=== PATIENT | male | born 1980 | race Caucasian/White ===

== ENCOUNTER 2016-11-22 08:25 | Emergency (ER) | payer OTHER ==
[2016-11-22] MEDS ORDERED: Aspirin Low Dose CHEW TAB* 81 MG PO ONE (08:32)
[2016-11-22] MEDS ORDERED: NS 0.9% 1000 ML* 1,000 ML IV ONE (08:32)
[2016-11-22] MEDS ORDERED: Labetalol IV* 5 MG/ML 20 ML VIAL IV PUSH ONE (08:45)
[2016-11-22] MEDS ORDERED: Labetalol IV* 5 MG/ML 20 ML VIAL ONE (08:47)
[2016-11-22 08:52] LABS: Hematocrit 44 % (42-52); Hemoglobin 15.2 g/dl (14.0-18.0); Mean Corpuscular HGB Conc 34 g/dl (31-36); Mean Corpuscular Hemoglobin 31 pg (27-31); Mean Corpuscular Volume 91 fL (80-94); Mean Platelet Volume 8 um3 (7.4-10.4); Red Blood Count 4.84 10^6/ul (4.0-5.4); Red Cell Distribution Width 13 % (10.5-15)
[2016-11-22 09:08] LABS: Albumin 3.6 g/dL (3.2-5.2); BUN/Creatinine Ratio 16.3 (8-20); Calcium 8.8 mg/dL (8.6-10.3); EGFR African American 141.5 (>60); Globulin 3.5 g/dL (2-4); Potassium 4.4 mmol/L (3.5-5.0); Total Bilirubin 0.3 mg/dL (0.2-1.0); Total Protein 7.1 g/dL (6.4-8.9)
[2016-11-22 09:09] LABS: Troponin I 0.01 ng/mL (<0.04)
[2016-11-22] MEDS ORDERED: Iodixanol* (CONTRAST) 320 MG/ML 100 ML SDV IV ONE (09:09)
--- NOTE | 2016-11-22 09:39 | RAD ---
HISTORY: Acute chest pain and shortness of breath COMPARISONS: None TECHNIQUE: Multiple contiguous axial CT scans were obtained of the chest, abdomen, and pelvis after the administration of intravenous contrast. Coronal and sagittal multiplanar reformations are submitted for review.. Oral contrast was not administered. 3-D volumetric reconstructions of the aorta are also submitted for review FINDINGS: CHEST NECK AND THYROID: The lower neck and thyroid are unremarkable. CHEST WALL: There is no lower cervical, axillary, or supraclavicular lymphadenopathy by size criteria. HEART AND PERICARDIUM: The heart is unremarkable. AORTA AND PULMONARY VASCULATURE: There is no pulmonary arterial filling defect to suggest pulmonary was. There is no aneurysmal dilatation of the aorta or intimal flap to suggest dissection. There is mild ectasia of ascending thoracic aorta up to 3.7 cm. MEDIASTINUM: There are prevascular and paratracheal and subcarinal lymph nodes, the largest measuring up to 1.2 cm in short axis. TAMIKA: There is a 1.2 cm short axis right hilar lymph node. AIRWAY AND ESOPHAGUS: The airway is unremarkable, without endobronchial filling defect. The esophagus is grossly normal. LUNG PARENCHYMA: The lungs are clear. PLEURA: No pleural abnormalities are noted. BONES AND SOFT TISSUES: No bone or soft tissue abnormalities are noted. ABDOMEN/PELVIS: LIVER: The liver is normal in shape, size, contour, and attenuation. BILE DUCTS: There is no intrahepatic or extrahepatic biliary dilatation. GALLBLADDER: The gallbladder is normal, without pericholecystic inflammatory change. PANCREAS: The pancreas is normal, without mass or ductal dilatation. SPLEEN: Normal in size and appearance. UPPER GI TRACT: Evaluation of the gastrointestinal tract is limited by incomplete gastric distention. The upper GI tract is unremarkable. SMALL BOWEL \T\ MESENTERY: The small bowel is normal in contour, course, and caliber. There is no obstruction or dilatation. COLON: The colon is normal in contour, course, caliber. There is no pericolonic inflammatory change. There is a tubular, vermiform, hollow viscus that is blind ending, and originates from the cecum, consistent with a normal appendix. There is no periappendiceal inflammatory change. This is best seen on axial images 94 through 101. ADRENALS: Normal bilaterally. KIDNEYS: The kidneys are normal in shape, size, contour, and axis. There is no hydronephrosis or nephrolithiasis. BLADDER: The bladder is smooth in contour. PELVIC ORGANS: The prostate gland is normal. The seminal vesicles are symmetric. AORTA: The aorta is normal. IVC: Unremarkable LYMPH NODES: There is no lymphadenopathy by size criteria. ABDOMINAL WALL: There is a small fat-containing umbilical hernia BONES: Mild degenerative changes are noted OTHER: None IMPRESSION: 1. NO AORTIC ANEURYSM OR DISSECTION. 2. NO PULMONARY ARTERIAL FILLING DEFECT TO SUGGEST PULMONARY ANEURYSM. 3. HILAR AND MEDIASTINAL LYMPHADENOPATHY
[2016-11-22 09:46] LABS: T4 7.83 mcg/mL (6.09-12.23)
[2016-11-22 09:47] LABS: TSH (Thyroid Stimulating Horm) 1.58 mcIU/mL (0.34-5.60)
[2016-11-22 10:27] LABS: Urine Bilirubin Negative (Negative); Urine Glucose Negative (Negative); Urine Nitrite Negative (Negative)
[2016-11-22 13:29] VITALS: BP 149/84
[2016-11-22 13:46] LABS: Benzodiazepine Urine Screen None Detected (None Detect)
--- NOTE | 2016-11-22 18:08 | ED ---
Nerissa Singer Rebecca, scribed for Tim Ferrell MD on 11/22/16 at 0844 . HPI Chest Pain - HPI Summary HPI Summary: Pt is a 36 y/o M who presents to ED c/o CP. Pain began suddenly at 0550 this morning, waking him up from sleep, and has been constant since onset. Pain is characterized as pressure and is currently moderate, ranked 4/10. Sx aggravated and alleviated by nothing. Additionally c/o sudden onset SOB since 0550. 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 Shx current smoker. - History of Current Complaint Chief Complaint: EDChestPainROMI Time Seen by Provider: 11/22/16 08:31 Hx Obtained From: Patient Onset/Duration: Still Present Time of Onset: 05:50 Timing: Constant Current Severity: Moderate Pain Intensity: 4 Pain Scale Used: 0-10 Numeric Character: Pressure/Squeezing Aggravating Factor(s): Nothing Alleviating Factor(s): Nothing Associated Signs and Symptoms: Positive: Shortness of Breath - Allergy/Home Medications Allergies/Adverse Reactions: Allergies Allergy/AdvReac Type Severity Reaction Status Date / Time No Known Allergies Allergy Verified 11/22/16 08:53 Home Medications: Home Medications Carvedilol TAB* [Coreg TAB*] 6.25 mg PO DAILY 11/22/16 [History Confirmed ] HYDROcodone/ACETAMIN 5-325 MG* [[place] 5-325 TAB*] 1 tab PO Q6H PRN MDD 4 tabs [History Confirmed 11/22/16] Nicotine Lozenge* 1 mg PO Q2H PRN 11/22/16 [History Confirmed 11/22/16] Pantoprazole TAB (NF) [Protonix TAB (NF)] 40 mg PO QAM 11/22/16 [History Confirmed 11/22/16] PMH/Surg Hx/FS Hx/Imm Hx Endocrine/Hematology History: Denies: Hx Anticoagulant Therapy, Hx Diabetes, Hx Thyroid Disease Cardiovascular History: Reports: Other Cardiovascular Problems/Disorders - Enlarged aortic arch Denies: Hx Hypertension, Hx Pacemaker/ICD Respiratory History: Denies: Hx Asthma, Hx Chronic Obstructive Pulmonary Disease (COPD) GI History: Reports: Hx Gastroesophageal Reflux Disease History: Denies: Hx Renal Disease Neurological History: Denies: Hx Dementia, Hx Seizures Psychiatric History: Denies: Hx Substance Abuse - Surgical History Surgery Procedure, Year, and Place: rt knee surgery, maniscus trimmed 2008 Infectious Disease History: Denies: Hx Hepatitis, Hx Human Immunodeficiency Virus (HIV), Traveled Outside the [place] in Last 30 Days - Family History Known Family History: Positive: Diabetes, Other - HLD - Social History Alcohol Use: Weekly Substance Use Type: Reports: None Smoking Status (MU): Heavy Every Day Tobacco Smoker Review of Systems Positive: Chest Pain Positive: Shortness Of Breath All Other Systems Reviewed And Are Negative: Yes Physical Exam - Summary Physical Exam Summary: VITAL SIGNS: Reviewed. GENERAL: ~Patient is a well-developed male who is lying comfortable in the stretcher. ~Patient is not in any acute respiratory distress. He is pale and ill -appearing. HEAD AND FACE: No signs of trauma. ~No ecchymosis, hematomas or skull depressions. No sinus tenderness. EYES: PERRLA, EOMI x 2, No injected conjunctiva, no nystagmus. EARS: Hearing grossly intact. Ear canals and tympanic membranes are within normal limits. MOUTH: Oropharynx within normal limits. NECK: Supple, trachea is midline, no adenopathy, no JVD, no carotid bruit, no c- spine tenderness, neck with full ROM. CHEST: Symmetric, no tenderness at palpation LUNGS: Clear to auscultation bilaterally. No wheezing or crackles. CVS: Regular rate and rhythm, S1 and S2 present, no gallops appreciated. Systolic ejection murmur. ABDOMEN: Soft, non-tender. No signs of distention. No rebound no guarding, and no masses palpated. Bowel sounds are normal. EXTREMITIES: FROM in all major joints, no edema, no cyanosis or clubbing. NEURO: Alert and oriented x 3. No acute neurological deficits. Speech is normal and follows commands. SKIN: Dry and warm, pale Triage Information Reviewed: Yes Vital Signs On Initial Exam: Initial Vitals Temp Pulse Resp BP Pulse Ox 96.7 F 66 20 156/99 98 11/22/16 08:26 11/22/16 08:26 11/22/16 08:26 11/22/16 08:26 11/22/16 08:26 Vital Signs Reviewed: Yes Diagnostics - Vital Signs Vital Signs Temp Pulse Resp BP Pulse Ox 11/22/16 08:26 96.7 F 66 20 156/99 98 - Laboratory Lab Results: Lab Results 11/22/16 11/22/16 11/22/16 Range/Units 08:32 08:32 08:32 WBC (3.5-10.8) 10^3/ul RBC (4.0-5.4) 10^6/ul Hgb (14.0-18.0) g/dl Hct (42-52) % MCV (80-94) fL MCH (27-31) pg MCHC (31-36) g/dl RDW (10.5-15) % Plt Count (150-450) 10^3/ul MPV (7.4-10.4) um3 Neut % (Auto) (38-83) % Lymph % (Auto) (25-47) % [place] % (Auto) (1-9) % Eos % (Auto) (0-6) % Baso % (Auto) (0-2) % Absolute Neuts (auto) (1.5-7.7) 10^3/ul Absolute Lymphs (auto) (1.0-4.8) 10^3/ul Absolute Monos (auto) (0-0.8) 10^3/ul Absolute Eos (auto) (0-0.6) 10^3/ul Absolute Basos (auto) (0-0.2) 10^3/ul Absolute Nucleated RBC 10^3/ul Nucleated RBC % INR (Anticoag Therapy) (0.89-1.11) APTT (26.0-36.3) seconds D-Dimer, Quantitative (Less Than 230) ng/mL Sodium 133 (133-145) mmol/L Potassium 4.4 (3.5-5.0) mmol/L Chloride 104 (101-111) mmol/L Carbon Dioxide 23 (22-32) mmol/L Anion Gap 6 (2-11) mmol/L BUN 13 (6-24) mg/dL Creatinine 0.80 (0.67-1.17) mg/dL Est GFR ( Amer) 141.5 (>60) Est GFR (Non-Af Amer) 110.0 (>60) BUN/Creatinine Ratio 16.3 (8-20) Glucose 95 (70-100) mg/dL Lactic Acid 1.4 (0.5-2.0) mmol/L Calcium 8.8 (8.6-10.3) mg/dL Magnesium 2.0 (1.9-2.7) mg/dL Total Bilirubin 0.30 (0.2-1.0) mg/dL AST 16 (13-39) U/L ALT 25 (7-52) U/L Alkaline Phosphatase 60 (34-104) U/L Total Creatine Kinase 62 (10-223) U/L CK-MB (CK-2) 1.4 (0.6-6.3) ng/mL Troponin I 0.01 (<0.04) ng/mL B-Natriuretic Peptide 78 ( - 100) pg/mL Total Protein 7.1 (6.4-8.9) g/dL Albumin 3.6 (3.2-5.2) g/dL Globulin 3.5 (2-4) g/dL Albumin/Globulin Ratio 1.0 (1-3) TSH 1.58 (0.34-5.60) mcIU/mL Thyroxine (T4) 7.83 (6.09-12.23) mcg/mL Urine Color Urine Appearance Urine pH (5-9) Ur Specific [place] (1.010-1.030) Urine Protein (Negative) Urine Ketones (Negative) Urine Blood (Negative) Urine Nitrate (Negative) Urine Bilirubin (Negative) Urine Urobilinogen (Negative) Ur Leukocyte Esterase (Negative) Urine Glucose (Negative) Urine Opiates Screen (None Detect) Ur Barbiturates Screen (None Detect) Ur Phencyclidine Scrn (None Detect) Ur Amphetamines Screen (None Detect) U Benzodiazepines Scrn (None Detect) Urine Cocaine Screen (None Detect) U Cannabinoids Screen (None Detect) 11/22/16 11/22/16 11/22/16 Range/Units 08:40 08:40 10:15 WBC 10.0 (3.5-10.8) 10^3/ul RBC 4.84 (4.0-5.4) 10^6/ul Hgb 15.2 (14.0-18.0) g/dl Hct 44 (42-52) % MCV 91 (80-94) fL MCH 31 (27-31) pg MCHC 34 (31-36) g/dl RDW 13 (10.5-15) % Plt Count 213 (150-450) 10^3/ul MPV 8 (7.4-10.4) um3 Neut % (Auto) 69.3 (38-83) % Lymph % (Auto) 19.0 L (25-47) % [place] % (Auto) 6.8 (1-9) % Eos % (Auto) 4.0 (0-6) % Baso % (Auto) 0.9 (0-2) % Absolute Neuts (auto) 6.9 (1.5-7.7) 10^3/ul Absolute Lymphs (auto) 1.9 (1.0-4.8) 10^3/ul Absolute Monos (auto) 0.7 (0-0.8) 10^3/ul Absolute Eos (auto) 0.4 (0-0.6) 10^3/ul Absolute Basos (auto) 0.1 (0-0.2) 10^3/ul Absolute Nucleated RBC 0 10^3/ul Nucleated RBC % 0 INR (Anticoag Therapy) 0.83 L (0.89-1.11) APTT 34.2 (26.0-36.3) seconds D-Dimer, Quantitative < 200 (Less Than 230) ng/mL Sodium (133-145) mmol/L Potassium (3.5-5.0) mmol/L Chloride (101-111) mmol/L Carbon Dioxide (22-32) mmol/L Anion Gap (2-11) mmol/L BUN (6-24) mg/dL Creatinine (0.67-1.17) mg/dL Est GFR ( Amer) (>60) Est GFR (Non-Af Amer) (>60) BUN/Creatinine Ratio (8-20) Glucose (70-100) mg/dL Lactic Acid (0.5-2.0) mmol/L Calcium (8.6-10.3) mg/dL Magnesium (1.9-2.7) mg/dL Total Bilirubin (0.2-1.0) mg/dL AST (13-39) U/L ALT (7-52) U/L Alkaline Phosphatase (34-104) U/L Total Creatine Kinase (10-223) U/L CK-MB (CK-2) (0.6-6.3) ng/mL Troponin I (<0.04) ng/mL B-Natriuretic Peptide ( - 100) pg/mL Total Protein (6.4-8.9) g/dL Albumin (3.2-5.2) g/dL Globulin (2-4) g/dL Albumin/Globulin Ratio (1-3) TSH (0.34-5.60) mcIU/mL Thyroxine (T4) (6.09-12.23) mcg/mL Urine Color Yellow Urine Appearance Clear Urine pH 5.0 (5-9) Ur Specific [place] 1.049 H (1.010-1.030) Urine Protein Negative (Negative) Urine Ketones Negative (Negative) Urine Blood Negative (Negative) Urine Nitrate Negative (Negative) Urine Bilirubin Negative (Negative) Urine Urobilinogen Negative (Negative) Ur Leukocyte Esterase Negative (Negative) Urine Glucose Negative (Negative) Urine Opiates Screen (None Detect) Ur Barbiturates Screen (None Detect) Ur Phencyclidine Scrn (None Detect) Ur Amphetamines Screen (None Detect) U Benzodiazepines Scrn (None Detect) Urine Cocaine Screen (None Detect) U Cannabinoids Screen (None Detect) 11/22/16 11/22/16 Range/Units 11:47 13:00 WBC (3.5-10.8) 10^3/ul RBC (4.0-5.4) 10^6/ul Hgb (14.0-18.0) g/dl Hct (42-52) % MCV (80-94) fL MCH (27-31) pg MCHC (31-36) g/dl RDW (10.5-15) % Plt Count (150-450) 10^3/ul MPV (7.4-10.4) um3 Neut % (Auto) (38-83) % Lymph % (Auto) (25-47) % [place] % (Auto) (1-9) % Eos % (Auto) (0-6) % Baso % (Auto) (0-2) % Absolute Neuts (auto) (1.5-7.7) 10^3/ul Absolute Lymphs (auto) (1.0-4.8) 10^3/ul Absolute Monos (auto) (0-0.8) 10^3/ul Absolute Eos (auto) (0-0.6) 10^3/ul Absolute Basos (auto) (0-0.2) 10^3/ul Absolute Nucleated RBC 10^3/ul Nucleated RBC % INR (Anticoag Therapy) (0.89-1.11) APTT (26.0-36.3) seconds D-Dimer, Quantitative (Less Than 230) ng/mL Sodium (133-145) mmol/L Potassium (3.5-5.0) mmol/L Chloride (101-111) mmol/L Carbon Dioxide (22-32) mmol/L Anion Gap (2-11) mmol/L BUN (6-24) mg/dL Creatinine (0.67-1.17) mg/dL Est GFR ( Amer) (>60) Est GFR (Non-Af Amer) (>60) BUN/Creatinine Ratio (8-20) Glucose (70-100) mg/dL Lactic Acid (0.5-2.0) mmol/L Calcium (8.6-10.3) mg/dL Magnesium (1.9-2.7) mg/dL Total Bilirubin (0.2-1.0) mg/dL AST (13-39) U/L ALT (7-52) U/L Alkaline Phosphatase (34-104) U/L Total Creatine Kinase (10-223) U/L CK-MB (CK-2) (0.6-6.3) ng/mL Troponin I 0.01 (<0.04) ng/mL B-Natriuretic Peptide ( - 100) pg/mL Total Protein (6.4-8.9) g/dL Albumin (3.2-5.2) g/dL Globulin (2-4) g/dL Albumin/Globulin Ratio (1-3) TSH (0.34-5.60) mcIU/mL Thyroxine (T4) (6.09-12.23) mcg/mL Urine Color Urine Appearance Urine pH (5-9) Ur Specific [place] (1.010-1.030) Urine Protein (Negative) Urine Ketones (Negative) Urine Blood (Negative) Urine Nitrate (Negative) Urine Bilirubin (Negative) Urine Urobilinogen (Negative) Ur Leukocyte Esterase (Negative) Urine Glucose (Negative) Urine Opiates Screen Presumptive positive H (None Detect) Ur Barbiturates Screen None detected (None Detect) Ur Phencyclidine Scrn None detected (None Detect) Ur Amphetamines Screen None detected (None Detect) U Benzodiazepines Scrn None detected (None Detect) Urine Cocaine Screen Presumptive positive H (None Detect) U Cannabinoids Screen None detected (None Detect) Result Diagrams: 11/22/16 08:40 11/22/16 08:32 Lab Statement: Any lab studies that have been ordered have been reviewed, and results considered in the medical decision making process. - CT Chest/Abd/Pel CTA CT Interpretation: No Acute Changes - 1. NO AORTIC ANEURYSM OR DISSECTION. 2. NO PULMONARY ARTERIAL FILLING DEFECT TO SUGGEST PULMONARY ANEURYSM. 3. HILAR AND MEDIASTINAL LYMPHADENOPATHY CT Interpretation Completed By: Radiologist - EKG 0832 Cardiac Rate: NL - 64 bpm EKG Rhythm: Sinus Rhythm EKG Interpretation: No ST elevation Re-Evaluation - Re-Evaluation First Eval Re-Evaluation Time: 09:30 Change: Improved Comment: Feels a lot better. BP is 118/78. Second Eval Re-Evaluation Time: 10:23 Change: Improved Comment: Pt continues to do much better. Chest Pain Course/Dx - Course Assessment/Plan: Pt is a 36 y/o M who presents to ED c/o CP. Pain began suddenly at 0550 this morning, waking him up from sleep, and has been constant since onset. Pain is characterized as pressure and is currently moderate, ranked 4/10. Sx aggravated and alleviated by nothing. Additionally c/o sudden onset SOB since 0550. 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 Shx current smoker. Test results without any significant abnormality. UA negative. CT Chest/ abd/pel reveals: 1. NO AORTIC ANEURYSM OR DISSECTION. 2. NO PULMONARY ARTERIAL FILLING DEFECT TO SUGGEST PULMONARY ANEURYSM. 3. HILAR AND MEDIASTINAL LYMPHADENOPATHY. We reviewed the old records and did not find that the pt has any history of heart problems, dissections, or widening of the mediastinum as the pt reported on history. The pt initially was hypertensive for which he was given Labetalol and now BP is stable. Troponin #1 is 0.01 and the 2nd troponin is also 0.01 after 4 hours. The pt continues to be asymptomatic and seeing as the pt has no comorbidities, therefore he will be D/ C to home to follow-up with PCP. Urine toxicology is positive for Cocaine and opiates. - Chest Pain Differential Diagnosis/HQI/PQRI: Acute [place], Angina, CHF, Chest Wall, GI Disease, Lower Respiratory Infection, Pulmonary Edema - Diagnoses Provider Diagnoses: Chest pain, Uncontrolled hypertension, Polysubstance abuse Discharge - Discharge Plan Condition: Stable Disposition: HOME Patient Education Materials: Chest Pain (ED), Hypertension (ED) Referrals: Maurice Cotton MD [Primary Care Provider] - 3 Days The documentation as recorded by the Nerissa cronin Rebecca accurately reflects the service I personally performed and the decisions made by , Tim Ferrell MD.
== END 2016-11-22 13:29 | disposition home or self-care (01) ==
LOC: ED 08:25
DX: I10 Essential (primary) hypertension (principal); F19.10 Other psychoactive substance abuse, uncomplicated; R06.02 Shortness of breath; R07.9 Chest pain, unspecified; F17.210 Nicotine dependence, cigarettes, uncomplicated
CPT/HCPCS: 36415; 71275; 74174; 80053; 80307; 81003; 82550; 82553; 83605; 83735; 83880; 84436; 84443; 84484; 85025; 85379; 85610; 85730; 93005; 96374; 99284; A9270-GY; Q9967

== ENCOUNTER 2022-03-22 09:12 | Inpatient (IN) ==
[~2022-03-22 09:12] MED LIST: Rocuronium 50 mg VIAL 10 mg/ml 5 ml VIAL (50 mg) ONE; Succinylcholine 200 mg VIAL 20 mg/ml 10 ml VIAL (200 mg) ONE
[2022-03-22] MEDS ORDERED: Etomidate 40 mg/20 ml (2 MG/ML) 20 ml VIAL (40 mg) ONE (09:20)
[2022-03-22] MEDS ORDERED: Piperacillin/Tazobac ADVAN 3.375 GM in NS 0.9% 100 ml BAG 100 ML IV ONE (09:44)
[2022-03-22] MEDS ORDERED: Azithromycin 500 mg/250 ml NS 500 MG/250 ML BAG IVPB ONE (09:44)
[2022-03-22 10:03] LABS: Urine Appearance Turbid; Urine Bilirubin Negative (Negative); Urine Blood 1+ (Negative); Urine Color Yellow; Urine Glucose 1+(50 mg/dL) (Negative); Urine Ketones Negative (Negative); Urine Nitrite Negative (Negative); Urine Protein 2+(100 mg/dL) (Negative); Urine Specific Gravity 1.017 (1.002-1.030); Urine Urobilinogen Negative (Negative)
[2022-03-22 10:04] LABS: Activated Partial Thrombo Time 36.3 seconds (26.0-38.0); INR 0.94 (0.89-1.11)
[2022-03-22] MEDS ORDERED: Lactated Ringers 1000 ml BAG 1,000 ML IV ONE (10:08)
[2022-03-22 10:13] LABS: Urine Benzodiazepine Screen None Detected (None Detect); Urine Cannabinoids Screen None Detected (None Detect); Urine Opiates Screen None Detected (None Detect)
[2022-03-22 10:18] LABS: Urine Bacteria Absent (Absent); Urine Granular Casts Present (Absent); Urine Red Blood Cell 3+(>10/hpf) (Absent); Urine Sperm Present (Absent); Urine White Blood Cell 3+(>20/hpf) (Absent)
[2022-03-22 10:21] LABS: High Sens Troponin Baseline 18 pg/mL (<20)
[2022-03-22 10:27] LABS: ALT 188 U/L (7-52); AST 232 U/L (13-39); Acetaminophen < 15 mcg/mL; Albumin 3.9 g/dL (3.2-5.2); Albumin/Globulin Ratio 1.4 (1-3); Alcohol, S 25 mg/dL (<13); Alkaline Phosphatase 105 U/L (35-149); Anion Gap 16 mmol/L (2-11); Blood Urea Nitrogen 17 mg/dL (6-24); C Reactive Protein 4.82 mg/L (<8.01); CO2 Carbon Dioxide 25 mmol/L (22-32); Calcium 9.1 mg/dL (8.6-10.3); Chloride 100 mmol/L (101-111); Creatine Kinase 150 U/L (10-223); Globulin 2.8 g/dL (2-4); Glucose 233 mg/dL (70-100); Potassium 4.1 mmol/L (3.5-5.0); Salicylate < 2.50 mg/dL (<30); Sodium 141 mmol/L (135-145); Total Protein 6.7 g/dL (6.4-8.9); eGFR CKD-EPI 65.7 (>60)
[2022-03-22 10:33] LABS: Urine Benzodiazepine Screen None Detected (None Detect); Urine Cannabinoids Screen None Detected (None Detect); Urine Opiates Screen None Detected (None Detect)
[2022-03-22 10:39] LABS: TSH Ultra Thyroid Stim Horm 4.17 mcIU/mL (0.34-5.60)
[2022-03-22 10:40] LABS: ABS Basophils 0.1 10^3/ul (0-0.2); ABS Eosinophils 0.5 10^3/ul (0-0.6); ABS Lymphocytes 7.1 10^3/ul (1.0-4.8); ABS Neutrophils 6.1 10^3/ul (1.5-7.7); Eosinophil % 3.6 %; Hematocrit 47 % (42-52); Hemoglobin 14.9 g/dL (14.0-18.0); Mean Corpuscular HGB Conc 32 g/dL (31-36); Mean Corpuscular Hemoglobin 34 pg (27-31); Mean Corpuscular Volume 107 fL (80-94); Mean Platelet Volume 8.5 fL (7.4-10.4); Platelet Count 221 10^3/uL (150-450); Red Blood Count 4.39 10^6 /uL (4.18-5.48); Red Cell Distribution Width 14 % (10-15); White Blood Count 14.8 10^3/uL (3.5-10.8)
[2022-03-22 10:41] LABS: RBC Morphology Normal (Normal)
[2022-03-22] MEDS ORDERED: Vancomycin 2,000 MG in NS 0.9% 250 ml 250 ML IVPB ONE (11:00)
[2022-03-22] MEDS ORDERED: Vancomycin 2,000 MG in NS 0.9% 500 ml BAG 500 ML IVPB ONE (11:00)
[2022-03-22] MEDS ORDERED: Propofol 10 mg/ml 100 ML BTL 100 ML IV SCH (11:00)
[2022-03-22] MEDS ORDERED: LORazepam 2 mg VIAL 1 ml ONE (11:03)
[2022-03-22 11:15] LABS: PO2 Arterial 83 mmHg (80-100)
[2022-03-22 11:18] LABS: PCO2 Arterial 82 mmHg (35-45)
[2022-03-22] MEDS ORDERED: Lorazepam PYXIS KEY PRN (11:23)
[2022-03-22] MEDS ORDERED: LORazepam 2 mg VIAL 1 ml IV PUSH ONE (11:23)
[2022-03-22 11:26] LABS: High Sensitivity Troponin 1 Hr 31 pg/mL (<20)
[2022-03-22] MEDS ORDERED: Midazolam IV for DRIP 100 MG in NS 0.9% 100 ml BAG 80 ML IV SCH (12:00)
[2022-03-22] MEDS ORDERED: Midazolam 50 MG PREMIX IV DRIP 50 ML IV SCH (12:00)
[2022-03-22] MEDS ORDERED: fentaNYL INFUSION 50 mcg/mL VL 2,500 MCG/50 ML VIAL IV SCH (12:00)
[2022-03-22 12:09] LABS: Urine Buprenorphine Screen None Detected (None Detect); Urine Fentanyl Screen Presumptive Positive (None Detect); Urine Hydrocodone Screen None Detected (None Detect)
[2022-03-22] MEDS ORDERED: Morphine 4 MG/ML VIAL (1 ml) IV ONE (12:41)
[2022-03-22] MEDS ORDERED: Iohexol 350 (CONTRAST) 500 ML MDV IV ONE (12:45)
[2022-03-22 15:50] LABS: PCO2 Arterial 61 mmHg (35-45); PO2 Arterial 77 mmHg (80-100)
[2022-03-22] MEDS: Propofol 10 mg/ml 100 ML BTL 100 ML IV SCH ×2 (17:54→22:26)
[2022-03-22] MEDS: fentaNYL INFUSION 50 mcg/mL VL 2,500 MCG/50 ML VIAL IV SCH (18:18)
[2022-03-22] MEDS ORDERED: Zosyn per Pharmacy NOTE FOLLOW UP SCH (19:00)
[2022-03-22] MEDS: Midazolam IV for DRIP 100 MG in NS 0.9% 100 ml BAG 80 ML IV SCH (19:05)
[2022-03-22] MEDS: Enoxaparin 40 MG/0.4 ML SYR SUBCUT SCH (19:11)
[2022-03-22] MEDS: Chlorhexidine MOUTHWASH 0.12% 15 ML UDC TOPICAL SCH (19:12)
[2022-03-22] MEDS: ZOSYN 3.375 GM Q8H per EXTENDED INFUSION IV SCH (19:20)
[2022-03-22] MEDS ORDERED: Lactated Ringers 1000 ml BAG 1,000 ML IV SCH (20:00)
[2022-03-22 20:40] LABS: Hepatitis B Surface Antigen Nonreactive (Nonreactive)
[2022-03-22 20:45] LABS: Hepatitis A Ab IgM Negative (Negative)
[2022-03-22 20:46] LABS: Hepatitis B Core IgM Nonreactive (Nonreactive)
[2022-03-22 20:52] LABS: HIV 4th Generation Nonreactive (Nonreactive)
[2022-03-22 20:55] LABS: PCO2 Arterial 44 mmHg (35-45); PO2 Arterial 176 mmHg (80-100)
[2022-03-22 20:57] LABS: Hepatitis C Antibody Negative (Negative)
[2022-03-22 21:11] LABS: Magnesium 2.7 mg/dL (1.9-2.7)
[2022-03-22 21:17] LABS: Cholesterol 168 mg/dL; HDL Cholesterol 35.9 mg/dL; LDL Cholesterol 92 mg/dL; Phosphorus 8.4 mg/dL (2.5-5.0); Triglycerides 203 mg/dL
[2022-03-22 21:37] LABS: Albumin 3.3 g/dL (3.2-5.2); Albumin/Globulin Ratio 1.3 (1-3); Calcium 7.9 mg/dL (8.6-10.3); Globulin 2.6 g/dL (2-4); Total Bilirubin 1.7 mg/dL (0.2-1.0); Total Protein 5.9 g/dL (6.4-8.9)
[2022-03-22 22:09] LABS: Potassium 5.6 mmol/L (3.5-5.0)
[2022-03-22] MEDS ORDERED: Acetaminophen IV 1 GM/100ML 1,000 MG/100 ML BAG IV ONE (22:15)
[2022-03-23] MEDS: Chlorhexidine MOUTHWASH 0.12% 15 ML UDC TOPICAL SCH ×6 (00:12→16:59)
[2022-03-23] MEDS: Midazolam IV for DRIP 100 MG in NS 0.9% 100 ml BAG 80 ML IV SCH (01:37)
[2022-03-23] MEDS: SODIUM ZIRCONIUM CYCLOSILICATE 10 GM PACKET PO SCH ×4 (02:21→22:55)
[2022-03-23] MEDS: ZOSYN 3.375 GM Q8H per EXTENDED INFUSION IV SCH ×3 (02:34→18:28)
[2022-03-23] MEDS: Propofol 10 mg/ml 100 ML BTL 100 ML IV SCH ×5 (03:04→22:04)
[2022-03-23 05:26] LABS: PCO2 Arterial 45 mmHg (35-45); PO2 Arterial 93 mmHg (80-100)
[2022-03-23 05:51] LABS: ABS Lymphocytes 0.9 10^3/ul (1.0-4.8); ABS Monocytes 0.7 10^3/ul (0-0.8); ABS Neutrophils 14.3 10^3/ul (1.5-7.7); Hematocrit 47 % (42-52); Hemoglobin 15.3 g/dL (14.0-18.0); Lymphocyte % 5.7 %; Mean Corpuscular HGB Conc 33 g/dL (31-36); Mean Corpuscular Hemoglobin 34 pg (27-31); Mean Corpuscular Volume 103 fL (80-94); Mean Platelet Volume 8.8 fL (7.4-10.4); Platelet Count 174 10^3/uL (150-450); Red Cell Distribution Width 14 % (10-15)
[2022-03-23 06:15] LABS: Magnesium 1.8 mg/dL (1.9-2.7); eGFR CKD-EPI 37.3 (>60)
[2022-03-23 06:29] LABS: Potassium 6.5 mmol/L (3.5-5.0)
[2022-03-23] MEDS ORDERED: Dextrose 50% Syringe 50 ml 25 GM/50 ML SYRINGE IV PUSH ONE ×2 (06:44→07:32)
[2022-03-23] MEDS ORDERED: Calcium Gluconate 2 GM in NS 0.9% 100 ml BAG 100 ML IV ONE (07:30)
[2022-03-23] MEDS ORDERED: Dextrose 50% VIAL 50 ml IV ONE (07:31)
[2022-03-23] MEDS ORDERED: Magnesium Sulfate 2 gm BAG 2 GM/50 ML BAG IVPB ONE (07:45)
[2022-03-23] MEDS: Pantoprazole VIAL 40 MG VIAL IV SCH (08:22)
[2022-03-23] MEDS ORDERED: Perflutren Lipid Microsphere 3 ML VIAL ONE (08:27)
[2022-03-23 11:42] LABS: Calcium 8.3 mg/dL (8.6-10.3); Potassium 5.1 mmol/L (3.5-5.0); eGFR CKD-EPI 40.8 (>60)
[2022-03-23] MEDS: Sodium Bicarb 8.4% Vial 50 ML 150 MEQ in D5W 1000 ml BAG 850 ML IV SCH ×2 (12:32→19:33)
[2022-03-23] MEDS: fentaNYL INFUSION 50 mcg/mL VL 2,500 MCG/50 ML VIAL IV SCH (15:35)
[2022-03-23] MEDS ORDERED: metroNIDAZOLE IV 500 MG/100ML 500 MG/100 ML BAG IVPB SCH (16:00)
[2022-03-23] MEDS: DOXYcycline 100 MG in NS 0.9% 250 ml 250 ML IVPB SCH (16:46)
[2022-03-23] MEDS: Enoxaparin 40 MG/0.4 ML SYR SUBCUT SCH (16:59)
[2022-03-23] MEDS ORDERED: Midazolam 5 mg/5 ml VIAL 1 mg/ml 5 ml VIAL (5 mg) IV SLOW PU ONE (18:43)
[2022-03-23] MEDS ORDERED: Midazolam 5 mg/5 ml VIAL 1 mg/ml 5 ml VIAL (5 mg) ONE (18:44)
[2022-03-23 20:04] LABS: CO2 Carbon Dioxide 29 mmol/L (22-32); Calcium 8.2 mg/dL (8.6-10.3); Chloride 103 mmol/L (101-111); Sodium 134 mmol/L (135-145)
[2022-03-23 20:09] LABS: Blood Urea Nitrogen 30 mg/dL (6-24); Glucose 124 mg/dL (70-100); eGFR CKD-EPI 65.7 (>60)
[2022-03-23 20:12] LABS: Anion Gap 2 mmol/L (2-11)
[2022-03-23 20:39] LABS: Magnesium 2.3 mg/dL (1.9-2.7)
[2022-03-23 20:45] LABS: Phosphorus 5.1 mg/dL (2.5-5.0)
[2022-03-23 20:47] LABS: Potassium, Whole Blood 3.6 mmol/L (3.4-4.5)
[2022-03-23 21:19] LABS: Calcium 8.1 mg/dL (8.6-10.3); Potassium 3.7 mmol/L (3.5-5.0); eGFR CKD-EPI 71.9 (>60)
[2022-03-23] MEDS ORDERED: Cefepime 2 GM in Dextrose 2 GM/50 ML BAG IV SCH (22:00)
[2022-03-24] MEDS: Propofol 10 mg/ml 100 ML BTL 100 ML IV SCH ×6 (01:23→21:59)
[2022-03-24] MEDS: Chlorhexidine MOUTHWASH 0.12% 15 ML UDC TOPICAL SCH ×7 (01:25→21:42)
[2022-03-24] MEDS ORDERED: SODIUM CHLORIDE 0.9% INTRADERM ONE (02:39)
[2022-03-24] MEDS ORDERED: HYALURONIDASE HUMAN INTRADERM ONE (02:39)
[2022-03-24] MEDS: ZOSYN 3.375 GM Q8H per EXTENDED INFUSION IV SCH ×3 (02:54→18:26)
[2022-03-24 03:10] LABS: Blood Urea Nitrogen 26 mg/dL (6-24); CO2 Carbon Dioxide 31 mmol/L (22-32); Calcium 8.1 mg/dL (8.6-10.3); Chloride 101 mmol/L (101-111); Glucose 114 mg/dL (70-100); Sodium 136 mmol/L (135-145); eGFR CKD-EPI 78.4 (>60)
[2022-03-24 03:12] LABS: Anion Gap 4 mmol/L (2-11)
[2022-03-24] MEDS: Sodium Bicarb 8.4% Vial 50 ML 150 MEQ in D5W 1000 ml BAG 850 ML IV SCH (03:30)
[2022-03-24 03:46] LABS: Potassium, Whole Blood 3.7 mmol/L (3.4-4.5)
[2022-03-24 06:15] LABS: ABS Eosinophils 0.3 10^3/ul (0-0.6); ABS Lymphocytes 1.2 10^3/ul (1.0-4.8); ABS Monocytes 0.6 10^3/ul (0-0.8); ABS Neutrophils 9.2 10^3/ul (1.5-7.7); Eosinophil % 2.7 %; Hematocrit 42 % (42-52); Hemoglobin 14.2 g/dL (14.0-18.0); Lymphocyte % 10.3 %; Mean Corpuscular HGB Conc 33 g/dL (31-36); Mean Corpuscular Hemoglobin 34 pg (27-31); Mean Corpuscular Volume 103 fL (80-94); Platelet Count 110 10^3/uL (150-450); Red Blood Count 4.13 10^6 /uL (4.18-5.48); Red Cell Distribution Width 14 % (10-15); White Blood Count 11.3 10^3/uL (3.5-10.8)
[2022-03-24] MEDS: DOXYcycline 100 MG in NS 0.9% 250 ml 250 ML IVPB SCH (06:19)
[2022-03-24 07:37] LABS: C Reactive Protein 193.67 mg/L (<8.01); Calcium 8.3 mg/dL (8.6-10.3); Magnesium 2.2 mg/dL (1.9-2.7); eGFR CKD-EPI 79.2 (>60)
[2022-03-24] MEDS ORDERED: Furosemide 40 mg/4 ml IV VIAL IV ONE (09:23)
[2022-03-24] MEDS: Pantoprazole VIAL 40 MG VIAL IV SCH (10:22)
[2022-03-24] MEDS: Dexmedetomidine 1,000 MCG in NS 0.9% 250 ml 240 ML IV SCH ×2 (10:24→21:42)
[2022-03-24 15:00] LABS: Chlamydia trachomatis NAA Negative (Negative); Neisseria gonorrhoeae (GC) NAA Negative (Negative)
[2022-03-24] MEDS: Enoxaparin 40 MG/0.4 ML SYR SUBCUT SCH (18:26)
[2022-03-25] MEDS ORDERED: hydrALAZINE 20 mg/ml 1 ML Vial IV IV SLOW PU PRN (02:19)
[2022-03-25] MEDS: Chlorhexidine MOUTHWASH 0.12% 15 ML UDC TOPICAL SCH ×3 (02:37→09:03)
[2022-03-25] MEDS: ZOSYN 3.375 GM Q8H per EXTENDED INFUSION IV SCH (02:37)
[2022-03-25] MEDS: Propofol 10 mg/ml 100 ML BTL 100 ML IV SCH ×2 (03:25→07:00)
[2022-03-25 04:40] LABS: ABS Basophils 0.1 10^3/ul (0-0.2); ABS Eosinophils 0.3 10^3/ul (0-0.6); ABS Lymphocytes 1.2 10^3/ul (1.0-4.8); ABS Monocytes 0.4 10^3/ul (0-0.8); ABS Neutrophils 8.2 10^3/ul (1.5-7.7); Eosinophil % 3.4 %; Hematocrit 39 % (42-52); Hemoglobin 13.1 g/dL (14.0-18.0); Lymphocyte % 11.3 %; Mean Corpuscular HGB Conc 34 g/dL (31-36); Mean Corpuscular Hemoglobin 34 pg (27-31); Mean Corpuscular Volume 101 fL (80-94); Mean Platelet Volume 8.5 fL (7.4-10.4); Platelet Count 128 10^3/uL (150-450); Red Blood Count 3.88 10^6 /uL (4.18-5.48); Red Cell Distribution Width 13 % (10-15); White Blood Count 10.2 10^3/uL (3.5-10.8)
[2022-03-25 05:27] LABS: Albumin 2.9 g/dL (3.2-5.2); Albumin/Globulin Ratio 1.2 (1-3); C Reactive Protein 149.08 mg/L (<8.01); Calcium 8.1 mg/dL (8.6-10.3); Globulin 2.5 g/dL (2-4); Potassium 3.5 mmol/L (3.5-5.0); Total Bilirubin 1.1 mg/dL (0.2-1.0); Total Protein 5.4 g/dL (6.4-8.9); eGFR CKD-EPI 86.1 (>60)
[2022-03-25] MEDS: Pantoprazole VIAL 40 MG VIAL IV SCH (09:03)
[2022-03-25] MEDS ORDERED: Furosemide 40 mg/4 ml IV VIAL IV ONE (09:56)
[2022-03-25] MEDS: cefTRIAXone 2 gm/50 mL D5W 2 GM/50 ML BAG IV SCH (10:20)
[2022-03-25] MEDS ORDERED: LORazepam 2 mg VIAL 1 ml IV PUSH SCH (11:00)
[2022-03-25] MEDS: Enoxaparin 40 MG/0.4 ML SYR SUBCUT SCH (17:18)
[2022-03-26 07:18] LABS: ABS Basophils 0.1 10^3/ul (0-0.2); ABS Eosinophils 0.2 10^3/ul (0-0.6); ABS Lymphocytes 1.2 10^3/ul (1.0-4.8); ABS Monocytes 0.8 10^3/ul (0-0.8); ABS Neutrophils 6.6 10^3/ul (1.5-7.7); Eosinophil % 2.3 %; Hematocrit 38 % (42-52); Hemoglobin 13.5 g/dL (14.0-18.0); Lymphocyte % 13.6 %; Mean Corpuscular HGB Conc 36 g/dL (31-36); Mean Corpuscular Hemoglobin 35 pg (27-31); Mean Corpuscular Volume 97 fL (80-94); Mean Platelet Volume 7.5 fL (7.4-10.4); Platelet Count 147 10^3/uL (150-450); Red Blood Count 3.84 10^6 /uL (4.18-5.48); Red Cell Distribution Width 13 % (10-15); White Blood Count 8.8 10^3/uL (3.5-10.8)
[2022-03-26 07:50] LABS: Albumin 2.9 g/dL (3.2-5.2); Albumin/Globulin Ratio 1.1 (1-3); Calcium 8.1 mg/dL (8.6-10.3); Globulin 2.6 g/dL (2-4); Magnesium 1.7 mg/dL (1.9-2.7); Potassium 3.1 mmol/L (3.5-5.0); Total Bilirubin 1.1 mg/dL (0.2-1.0); Total Protein 5.5 g/dL (6.4-8.9); eGFR CKD-EPI 113.9 (>60)
[2022-03-26] MEDS: cefTRIAXone 2 gm/50 mL D5W 2 GM/50 ML BAG IV SCH (09:59)
[2022-03-26] MEDS ORDERED: Lorazepam PYXIS KEY PRN (10:18)
[2022-03-26] MEDS ORDERED: Potassium Chloride LIQUID 20 MEQ/15 ML LIQUID PO ONE (13:45)
[2022-03-26] MEDS ORDERED: Magnesium Sulfate 2 gm BAG 2 GM/50 ML BAG IVPB ONE (13:50)
[2022-03-26] MEDS: Enoxaparin 40 MG/0.4 ML SYR SUBCUT SCH (18:34)
[2022-03-26 20:19] LABS: HIT ELISA 0.059 OD (<0.400); Heparin PF4 Antibody Interp Negative (Negative)
[2022-03-27 04:29] LABS: Hematocrit 41 % (42-52); Hemoglobin 14.6 g/dL (14.0-18.0); Mean Corpuscular HGB Conc 35 g/dL (31-36); Mean Corpuscular Hemoglobin 34 pg (27-31); Mean Corpuscular Volume 97 fL (80-94); Mean Platelet Volume 7.7 fL (7.4-10.4); Platelet Count 175 10^3/uL (150-450); Red Blood Count 4.25 10^6 /uL (4.18-5.48); Red Cell Distribution Width 13 % (10-15); White Blood Count 10.8 10^3/uL (3.5-10.8)
[2022-03-27 05:19] LABS: Blood Urea Nitrogen 12 mg/dL (6-24); CO2 Carbon Dioxide 24 mmol/L (22-32); Calcium 8.2 mg/dL (8.6-10.3); Chloride 101 mmol/L (101-111); Glucose 97 mg/dL (70-100); Sodium 134 mmol/L (135-145); eGFR CKD-EPI 124.5 (>60)
[2022-03-27 05:30] LABS: Anion Gap 9 mmol/L (2-11)
[2022-03-27 05:49] LABS: ABS Eosinophils 0.4 10^3/ul (0-0.6); ABS Lymphocytes 1.7 10^3/ul (1.0-4.8); ABS Monocytes 0.9 10^3/ul (0-0.8); ABS Neutrophils 7.8 10^3/ul (1.5-7.7); Eosinophil % 3.3 %; Lymphocyte % 15.7 %
[2022-03-27 06:54] LABS: Potassium Redraw 3.2 mmol/L (3.5-5.0)
[2022-03-27 07:03] LABS: Potassium, Whole Blood 3.2 mmol/L (3.4-4.5)
[2022-03-27] MEDS: KCL 20 MEQ/100 ML IVPREMIX 20 MEQ/100 ML BAG IV SCH ×2 (09:54→11:45)
[2022-03-27] MEDS: cefTRIAXone 2 gm/50 mL D5W 2 GM/50 ML BAG IV SCH (10:23)
[2022-03-27] MEDS ORDERED: Potassium Chlor 20 meq TAB.ER PO ONE (11:24)
[2022-03-27] MEDS ORDERED: Furosemide 40 mg/4 ml IV VIAL IV SLOW PU ONE (11:57)
[2022-03-27] MEDS ORDERED: KCL 20 MEQ/100 ML IVPREMIX 20 MEQ/100 ML BAG IV SCH (12:00)
[2022-03-27 12:43] VITALS: BP 145/107
== END 2022-03-27 11:00 | disposition left against medical advice (07) | DRG 812 ==
LOC: ED 09:12 → ICU 17:29
PROVIDERS: ADMIT Internal Medicine Critical Care Medicine; ATTEND Internal Medicine Critical Care Medicine